=== PATIENT | male | born 1945 | race Caucasian/White ===

== ENCOUNTER 2018-10-24 10:59 | Inpatient (IN) ==
[2018-10-17 14:33] LABS: Appearance,Urine CLEAR; Bilirubin,Urine NEG (NEG); Color,Urine YELLOW; Glucose,Urine (UA) NEGATIVE (NEG); Leukocyte Esterase,Urine NEG /uL (NEG); Protein,Urine NEG (NEG); Urine Blood NEG mg/dL (<0.03); Urobilinogen,Urine NEG (NEG)
[2018-10-17 14:51] LABS: Basophils # (Auto) 0 K/mcL (0.0-0.3); Basophils % (Auto) 0.6 % (0.0-2.0); Eosinophils # (Auto) 0.1 K/mcL (0.0-0.7); Eosinophils % (Auto) 2.2 % (0.0-7.0); Granulocytes % (Auto) 63.1 % (38.0-78.0); Lymphocytes # (Auto) 1.5 K/mcL (1.5-4.8); Lymphocytes % (Auto) 25.4 % (15.5-49.0); Mean Cell Volume 87.4 fL (80.0-100.0); Mean Corpuscular HGB Conc 32.1 g/dL (31.0-36.0); Monocytes # (Auto) 0.5 K/mcL (0.1-0.9); Monocytes % (Auto) 8.7 % (1.0-12.0); Platelet Count 298 K/mcL (140-440); RBC 5.53 M/mcL (4.50-5.90); Red Cell Distribution Width 13.4 % (11.5-14.5)
[2018-10-17 15:07] LABS: Blood Urea Nitrogen 16 mg/dl (8-23)
[2018-10-17 15:22] LABS: Estimated Average Glucose(eAG) 146 mg/dL; Hemoglobin A1C 6.7 % HGB (4.0-6.0)
[~2018-10-24 10:59] MED LIST: CELECOXIB 200 MG CAPSULE PO SCH; PREGABALIN 75 MG CAPSULE PO SCH; ceFAZolin 1 GM VIAL IV SCH; oxyCODONE 10 MG TAB.ER.12H PO SCH
[2018-10-24] MEDS ORDERED: IPRATROPIUM/ALBUTEROL 3 ML AMPUL.NEB NEB ONE (13:48)
[2018-10-24] MEDS ORDERED: LIDOCAINE HCL/PF 100 MG/5 ML SYRINGE IV ONE (14:25)
[2018-10-24] MEDS ORDERED: DEXAMETHASONE 4 MG/ML VIAL IV ONE (14:25)
[2018-10-24] MEDS ORDERED: PHENYLEPHRINE 10 MG/ML VIAL IV ONE (14:25)
[2018-10-24] MEDS ORDERED: ONDANSETRON 4 MG/2 ML VIAL IV ONE (14:25)
[2018-10-24] MEDS ORDERED: SUCCINYLCHOLINE 20 MG/ML ML IV ONE (14:25)
[2018-10-24] MEDS ORDERED: TRANEXAMIC ACID 1,000 MG/10 ML VIAL IV ONE ×2 (14:25→16:11)
[2018-10-24] MEDS ORDERED: ePHEDrine 50 MG/ML AMPUL IV ONE (14:25)
[2018-10-24] MEDS ORDERED: PROPOFOL 200 MG/20 ML VIAL IV ONE (14:25)
[2018-10-24] MEDS ORDERED: MIDAZOLAM 5 MG/5 ML VIAL IV ONE (14:25)
[2018-10-24] MEDS ORDERED: HEPARIN 20,000 UNIT/ML VIAL IR ONE (15:14)
[2018-10-24] MEDS ORDERED: IPRATROPIUM/ALBUTEROL 3 ML AMPUL.NEB NEB PRN (15:51)
[2018-10-24] MEDS ORDERED: HYDROmorphone 2 MG/ML VIAL IV PRN (15:51)
[2018-10-24] MEDS ORDERED: METOPROLOL TARTRATE 5 MG/5 ML VIAL IV PRN (15:51)
[2018-10-24] MEDS ORDERED: MEPERIDINE 25 MG/ML SYRINGE IV PRN (15:51)
[2018-10-24] MEDS ORDERED: METHOCARBAMOL 1,000 MG/10 ML VIAL IV PRN (15:51)
[2018-10-24] MEDS ORDERED: FLUMAZENIL 0.1 MG/ML ML IV PRN (15:51)
[2018-10-24] MEDS ORDERED: PROMETHAZINE 25 MG/ML VIAL IV PRN (15:51)
[2018-10-24] MEDS ORDERED: ACETAMINOPHEN 1,000 MG/100 ML BOTTLE IV ONE (15:51)
[2018-10-24] MEDS ORDERED: ATROPINE SULFATE 0.4 MG/ML VIAL IV PRN (15:51)
[2018-10-24] MEDS ORDERED: ONDANSETRON 4 MG/2 ML VIAL IV PRN ×2 (15:51→16:11)
[2018-10-24] MEDS ORDERED: NALOXONE HCL 0.4 MG/ML VIAL IV PRN (15:51)
[2018-10-24] MEDS ORDERED: diphenhydrAMINE 50 MG/ML VIAL IV PRN (15:51)
[2018-10-24] MEDS ORDERED: ePHEDrine 50 MG/ML AMPUL IV PRN (15:51)
[2018-10-24] MEDS ORDERED: LACTATED RINGERS 1,000 ML IV SCH (16:00)
[2018-10-24] MEDS ORDERED: BISACODYL 10 MG SUPP.RECT PR PRN (16:11)
[2018-10-24] MEDS ORDERED: FLEETS ADULT ENEMA PR PRN (16:11)
[2018-10-24] MEDS ORDERED: POLYETHYLENE GLYCOL 3350 17 GM PACKET PO PRN (16:11)
[2018-10-24] MEDS ORDERED: MAGNESIUM HYDROXIDE 30 ML ORAL.SUSP PO PRN (16:11)
--- NOTE | 2018-10-24 16:11 | Brief Operative Note ---
Date of procedure: 10/24/18 Pre-op diagnosis: R hip DJD Post-op diagnosis: same Procedure: Right anterior total hip arthroplasty Grafts/Implants: Yes (Depuy Actis 7 HO stem, +8.5 36 delta head, 56 cup, neutral altrx liner) Anesthesia: spinal, GLMA Findings: complete cartilage loss off femoral head Complications: none Surgeon: Hari Villa Purification Director: Robert Burnett Estimated blood loss (cc): 300 Specimens Removed/Pathology: none sent Condition: stable Disposition: PACU
[2018-10-24] MEDS ORDERED: WALKER MC SCH (16:15)
[2018-10-24] MEDS: fentaNYL 100 MCG/2 ML VIAL IV PRN ×2 (17:00→17:02)
--- NOTE | 2018-10-24 17:27 | XRay Report ---
CLINICAL INFORMATION: RIGHT ANTERIOR TOTAL HIP COMPARISON: None. FINDINGS: Multiple digital images are submitted from the OR. Final image shows right total hip prosthesis anatomically aligned. No osseous abnormality. IMPRESSION: Right total hip prosthesis in anatomic alignment. Interpreted and Authenticated by: Everardo Lara 10/24/18
--- NOTE | 2018-10-24 17:28 | XRay Report ---
CLINICAL INFORMATION: Post-op Total Hip COMPARISON: None. FINDINGS: A new right total hip prosthesis is anatomically aligned. No osseous abnormalities. Older left total hip prosthesis also in anatomic alignment without loosening or infection. Soft tissues at the surgical site - as expected IMPRESSION: Negative Interpreted and Authenticated by: Everardo Lara 10/24/18
[2018-10-24] MEDS: 0.9 % SODIUM CHLORIDE 1,000 ML IV SCH (17:59)
[2018-10-24] MEDS: HYDROcodone/APAP 10/325MG TABLET PO PRN ×2 (18:56→19:48)
[2018-10-24] MEDS: KETOROLAC 30 MG/ML VIAL IV PRN (18:59)
[2018-10-24] MEDS ORDERED: SENNOSIDES 1 TABLET PO SCH (21:00)
[2018-10-24] MEDS: HYDROmorphone 2 MG/ML VIAL IV PRN ×2 (21:26→22:49)
[2018-10-24] MEDS: DOCUSATE SODIUM 100 MG CAPSULE PO SCH (21:28)
[2018-10-24] MEDS: ceFAZolin 1 GM VIAL IV SCH (21:28)
[2018-10-24] MEDS: ASPIRIN 325 MG ENTERIC COATED TABLET PO SCH (21:28)
[2018-10-24] MEDS: 0.9 % SODIUM CHLORIDE 10 ML SYRINGE IV SCH (23:57)
[2018-10-25] MEDS: HYDROcodone/APAP 10/325MG TABLET PO PRN ×4 (00:57→14:14)
[2018-10-25] MEDS: KETOROLAC 30 MG/ML VIAL IV PRN (01:01)
[2018-10-25] MEDS: 0.9 % SODIUM CHLORIDE 1,000 ML IV SCH ×2 (01:15→08:27)
[2018-10-25] MEDS: HYDROmorphone 2 MG/ML VIAL IV PRN (04:20)
[2018-10-25] MEDS: BENZOCAINE/MENTHOL 1 LOZENGE PO PRN ×2 (04:35→15:26)
[2018-10-25] MEDS: ceFAZolin 1 GM VIAL IV SCH (05:41)
[2018-10-25] MEDS: 0.9 % SODIUM CHLORIDE 10 ML SYRINGE IV SCH (06:29)
--- NOTE | 2018-10-25 08:10 | Discharge Summary ---
Ortho Discharge - [facility] - Patient Instructions Diet: Regular Diet Activity: weight bearing as tolerated Total Hip Protocol: Follow activity instructions as provided by Physical Therapy. Dressing Care: May shower in 2 days, Aquacel Ag - leave on for 5 days Patient Education: Total Hip Replacement (DC) Additional Instructions: Discharge Instructions: Do the exercises at home that physical therapy gave you throughout the day. Weight bearing as tolerated. Wear comfortable clothing for physical therapy. You are scheduled to start physical therapy at [facility] ([phone]) on [facility] Take your prescription, photo ID, insurance cards, and current medication list with you to your first physical therapy appointment. Take your prescription to picker box operator any medication. If you have the Aquacel Ag dressing, leave in place for 7 days then remove. If dressing becomes soiled (turns black), remove and use gauze 4x4 dressing and silvasorb ointment and change daily. Keep incision clean and dry. If you have Dermabond (a dressing with a mesh-like appearance), DO NOT remove mesh. Cover site daily with gauze dressing. You may start showering on post op day #2. The Dermabond dressing can get wet, do not scrub dressing. Pat dry, then place new dressing (above). To avoid constipation while taking any narcotic pain medication, take an over the counter stool softener/laxative. Use ice packs as directed, on for 20 minutes at a time throughout the day. This and elevation will help with pain and swelling. Call your physician for fevers above 100.5 or pain not controlled by medication. Your prescriptions are with your discharge information. Some medications were electronically transmitted to your pharmacy of choice. Take Aspirin twice daily, for 30 days, as prescribed to prevent blood clots (see medication list). - Follow Up Plan Follow Up Appointments: Robert Burnett PA-C [Physician Supervisor Stage Carpentry] - 11/08/18 11:20 am Disposition: Home, Self-Care Prognosis: Good Rehab Potential: Good - Orders For Discharge Additional Discharge Orders: Physical Therapy at Discharge - [facility] Location: None Selected Toilet Riser Discharge Order Location: None Selected Walker Location: None Selected
[2018-10-25] MEDS: ASPIRIN 325 MG ENTERIC COATED TABLET PO SCH (10:12)
[2018-10-25] MEDS: DOCUSATE SODIUM 100 MG CAPSULE PO SCH (10:12)
--- NOTE | 2018-10-25 10:52 | Operative Note ---
DATE OF OPERATION: 10/24/2018 PREOPERATIVE DIAGNOSIS: Right hip degenerative joint disease. POSTOPERATIVE DIAGNOSIS: Right hip degenerative joint disease. PROCEDURE PERFORMED: Right anterior total hip arthroplasty placing a DePuy Actis size 7 high offset stem; a +8.5, 36 mm delta head ball; a 56 cup with a neutral AltrX liner. SURGEON: Hari Villa M.D. BOTTLER HELPER: Tim Burnett PA-C. ANESTHESIA: Spinal plus general. DRAINS: None. SPECIMEN: Femoral head which was discarded. BLOOD LOSS: 300 mL. COMPLICATIONS: None. POSTOPERATIVE CONDITION: Stable. INDICATIONS FOR SURGERY: This is a 73-year-old male who has had worsening right hip pain. He had previous left total hip arthroplasty with good result. His hip exam revealed significant discomfort with range of motion. FINDINGS AT SURGERY: He did have full-thickness cartilage loss off the femoral head, as well as several cartilage loose bodies and a large joint effusion. Post implantation showed acceptable component position, leg length and offset christianity. PROCEDURE IN DETAIL: The patient had been seen preoperatively. Informed consent had been obtained after discussion of risks and benefits of surgery. Risks including, but not limited to, bleeding, possibly requiring transfusion; infection, possibly requiring implant removal and prolonged IV antibiotics; injury to nerves, blood vessels, and other surrounding structures; anesthetic risks; incomplete or no resolution of symptoms; leg length discrepancy; dislocation; fracture; DVT and pulmonary embolus risks; and the possibility of further revision joint surgery. He understood and wished to proceed. Correct operative site was marked and then patient received spinal anesthesia. He was then taken to the operating room and LMA general given. He was carefully positioned on the fracture table, and the right hip and groin were carefully prepped and draped in normal sterile fashion. Time out was performed verifying patient name, operative site, and plan. Ioban was used to cover all skin surfaces, and a standard anterior approach incision was made with a scalpel through skin and subcutaneous tissue. Hemostasis was obtained with Bovie cautery. Careful blunt dissection was taken down onto the tensor fascia and then this was undermined circumferentially. Irrisept was irrigated and then a ring retractor was placed. We then incised the tensor fascia in line with the muscle fibers then carefully dissected medial to the muscle belly. Blunt cobra retractors were placed on the superior and inferior neck. Circumflex vessels were coagulated and cut and vastus fascia released distally. Anterior capsulectomy was performed and upon entering the capsule, a large joint effusion was aspirated. We then released capsule out to the greater and lesser trochanters and then traction was placed on the leg. Corkscrew was placed in the femoral head. Osteotome was used under fluoro to identify our neck cut. An oscillating tip saw was used to make our osteotomy. Femoral head was removed and at this point we noted the complete cartilage loss. The acetabulum was then exposed, and we did note multiple cartilage loose bodies within the joint as well. Labrum was excised circumferentially, as well as soft tissue from the floor. We then started reaming directly medializing. We increased reamer size and angle until a 55 reamer seemed to get rim ream. We opened a 56 three-hole [place] cup. We irrigated the acetabulum with Irrisept, after a minute pulse lavaged with saline. We then impacted the cup. We had difficulty getting press fit, so we ended up removing the cup, reaming more medial and more proximal to try and get better coverage of the reamer, and then we impacted the cup. We did get some press fit, but due to the prior difficulties I went ahead and placed a screw in the posterior superior quadrant for insurance sake. We placed a 35, then a center hole cover was placed, and a neutral 36 liner was aligned and impacted. Tabs were carefully verified to be fully seated. Traction was released from the leg. We externally rotated. We released capsule around the medial and posterior neck and the leg was extended and adducted. Capsule was released out towards the greater trochanter and then proximal femur was exposed. Box osteotome was used to enter the canal and then an awl was used to identify the trajectory. [place] and rasp were used to lateralize. We then sequentially broached up, eventually ending up at a size 7 high offset stem. We initially trialed with a +5 head ball. The tension was not excessive. We went ahead and took an AP pelvis x-ray to verify neutral rotation and AP of the nonoperative and operative legs were overlaid. His prior hip replacement he had been shortened a little bit, so we did want to keep it longer as he did have some subluxation of the hip for about a year after his other surgery. Our leg length was only slightly longer than before and tension was not as good as I would like, so I dislocated. We removed the trial implants, opened a size 7 high offset Actis stem. We irrigated the femoral canal with Irrisept, after a minute pulse lavaged with saline copiously. We then impacted the 7 stem, and I chose a +8.5, 36 delta head. The stem was carefully cleaned and dried and the head ball briskly impacted with multiple blows of the mallet. We then reduced the hip. Final fluoro images were taken and saved. We irrigated with Irrisept, after a minute copiously pulse lavaged with saline. A #1 Vicryl was used two running stitches, one running proximal, one running distal to close the tensor fascia. Ring retractor was removed and Irrisept irrigated again. After a minute we pulse lavaged with saline. Fat was tacked to fascia with Vicryl and then 2-0 Monocryl was used for subcutaneous and ajit for skin. Xeroform and sterile dressing were applied. The patient was then awakened, extubated, and transferred to recovery in stable condition. JAVI:jason Job ID: [id number] Doc ID: [id number] Hari Villa MD
--- NOTE | 2018-10-25 22:28 | Orthopedic Progress Note ---
Subjective Patient information: Note initiated : 10/25/18 at 10:26 pm Service Date, if different from initiated Date: [10/25/18814] Patient: Placido Suazo 73 y/o M admitted on 10/24/18 for Right Total Hip Arthroplasty. Chief Complaint: [] Principal diagnosis: s/p R total hip Interval history: some nausea and vomiting this am, better now Objective Vital signs: Vital Signs Temp Pulse Resp BP Pulse Ox 10/25/18 12:00 98.1 F 80 12 116/70 93 10/25/18 08:00 97.9 F 90 12 114/68 94 10/25/18 04:05 98.4 F 94 H 12 114/66 94 10/24/18 23:23 98.2 F 94 H 12 108/66 95 Intake and Output 10/25/18 10/25/18 10/26/18 13:59 21:59 05:59 Intake Total 1000 240 Output Total 1050 250 Balance -50 -10 Intake: IV 1000 Sodium Chloride 0.9% 1,000 ml @ 1000 125 mls/hr IV .Q8H MAXI Rx#: [id number] Oral 240 Output: Void Amount 1050 250 Other: Urine Appearance Clear Clear Urine Color Pale Pale Urine Odor Normal Intake & Output: Intake & Output 10/25/18 10/25/18 10/26/18 13:59 21:59 05:59 Intake Total 1000 240 Output Total 1050 250 Balance -50 -10 Intake: IV 1000 Sodium Chloride 0.9% 1,000 ml @ 1000 125 mls/hr IV .Q8H MAXI Rx#: [id number] Oral 240 Output: Void Amount 1050 250 Other: Urine Appearance Clear Clear Urine Color Pale Pale Urine Odor Normal Neurological exam IM: Yes alert, Yes oriented X3, Yes neurovascular intact - Labs CBC & BMP: 10/25/18 05:27 10/17/18 13:06 Labs: 10/25/18 10/17/18 05:27 13:07 Hgb 12.6 L 15.5 Hct 39.0 L 48.3 Assessment and Plan (1) Status post total replacement of right hip POD#1- stable now with nausea improved -wants to d/c home today Status: Acute
== END 2018-10-25 15:40 | disposition home or self-care (01) | DRG 470 ==
LOC: MEDSUR 10:59
PROVIDERS: ADMIT Orthopaedic Surgery; ATTEND Orthopaedic Surgery